=== PATIENT | male | born 1955 | race Caucasian/White ===

== ENCOUNTER 2021-05-27 16:28 | Emergency (ER) | payer SELFPAY ==
[~2021-05-27] VITALS: Ht 170.2 cm; Wt 64.4 kg
--- NOTE | 2021-05-27 17:08 | NUR ---
BIB RA 860,C/O CHRONIC RIGHT FOOT PAIN. RATES PAIN 5/10. WILL CONTINUE TO MONITOR THE PATIENT.
--- NOTE | 2021-05-27 17:36 | NUR ---
Patient discharged in stable condition. Written and verbal after care instructions given. Patient verbalizes understanding of instruction but the patient refuses to sign homeless waiver and discharge paper despite explaining.
[2021-05-27 17:37] VITALS: BP 122/75
== END 2021-05-27 17:37 | disposition home or self-care (01) ==
LOC: ER 16:31
DX: Z02.89 Encounter for other administrative examinations (principal); M79.671 Pain in right foot; G89.29 Other chronic pain; Z59.0 Homelessness; Z60.2 Problems related to living alone